=== PATIENT | male | born 1995 ===

== ENCOUNTER 2016-09-07 22:16 | Emergency (ER) | payer BC, OTHER ==
[2016-09-07 22:22] VITALS: BP 120/67; PULSE 92; RESP 18; TEMP 98; O2SAT 97
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
== END 2016-09-07 23:26 | disposition home or self-care (01) ==
LOC: H.ER 22:16
DX: S01.512A Laceration without foreign body of oral cavity, initial encounter (principal); Y04.0XXA Assault by unarmed brawl or fight, initial encounter; Y92.89 Other specified places as the place of occurrence of the external cause

== ENCOUNTER 2016-09-08 19:07 | Emergency (ER) | payer BC, OTHER ==
[2016-09-08 19:15] VITALS: O2SAT 100
[2016-09-08] MEDS ORDERED: Clindamycin 600 MG in Sodium Chloride 0.9% 100 ML IVPB STA (19:27)
--- NOTE | 2016-09-08 19:30 | ED PDOC ---
HPI: General Adult Time Seen by Provider: 09/08/16 19:20 Chief Complaint (Nursing): Abnormal Skin Integrity Chief Complaint (Provider): Right sided mouth swelling History Per: Patient History/Exam Limitations: no limitations Onset/Duration Of Symptoms: Days (1) Have you had recent travel within the past 21 days to any of the following countries: [place], [place], [place] or [place]?: No Current Symptoms Are (Timing): Still Present Severity: Moderate Recently: Seen In ED Additional History Per: Patient Additional Complaint(s): The pt is a 21yo male, presents to the ED for evaluation of pain and swelling to the right side of his mouth since last night. Pt was seen in this facility by provider at 22:20 for evaluation of laceration sustained on the right intra- oral space and had 10 stitches as well as antibiotics. Pt was discharged with Rx Penicillin and Motrin and was instructed for proper wound care. Pt reports today with persistent pain, increased swelling and tactile fever. He states he filled out his prescriptions today and has taken only one dose of the antibiotics. He denies any new injuries or trauma. At present, he offers no additional medical complaints. PMD: None provided Past Medical History Reviewed: Historical Data, Nursing Documentation, Vital Signs Vital Signs: Last Vital Signs Temp 98.2 F 09/08/16 19:12 Pulse 62 09/08/16 19:12 Resp 18 09/08/16 19:12 BP 139/81 09/08/16 19:12 Pulse Ox 100 09/08/16 21:00 - Surgical History Surgical History: No Surg Hx - Family History Family History: States: No Known Family Hx - Living Arrangements Living Arrangements: With Family - Home Medications Home Medications: Ambulatory Orders Medication Instructions Recorded Ibuprofen [Motrin] 600 mg PO Q8 PRN #21 tab 09/07/16 Penicillin VK [Pen-Vee K] 1 tab PO QID #40 tab 09/07/16 Clindamycin [Cleocin] 1 tab PO Q6 #40 cap 09/08/16 - Allergies Allergies/Adverse Reactions: Allergies Allergy/AdvReac Type Severity Reaction Status Date / Time No Known Allergies Allergy Verified 09/07/16 22:18 Review of Systems ROS Statement: Except As Marked, All Systems Reviewed And Found Negative Constitutional: Negative for: Fever ENT: Positive for: Mouth Pain (swelling in right mouth), Other (no new trauma to mouth) Physical Exam - Reviewed Nursing Documentation Reviewed: Yes Vital Signs Reviewed: Yes - Physical Exam Appears: Positive for: Well, Non-toxic, No Acute Distress Head Exam: Positive for: ATRAUMATIC, NORMAL INSPECTION, NORMOCEPHALIC Skin: Positive for: Normal Color, Warm, DRY Eye Exam: Positive for: Normal appearance ENT: Positive for: Other (moderate swelling to right side of mouth, purulent discharge noted at suture site) Neck: Positive for: Normal Cardiovascular/Chest: Positive for: Regular Rate, Rhythm Respiratory: Positive for: Normal Breath Sounds. Negative for: Respiratory Distress Neurologic/Psych: Positive for: Alert, Oriented - Laboratory Results Result Diagrams: 09/08/16 19:58 09/08/16 19:58 - ECG O2 Sat by Pulse Oximetry: 100 (RA) Pulse Ox Interpretation: Normal - Progress ED Course And Treament: Clindamycin 600mg iv x 1 dose Medical Decision Making Medical Decision Making: Time: 1929 Impression: Right sided mouth swelling with purulent discharge Plan: -- CMP -- Lactic acid -- CBC -- Blood culture -- Morphine 4 mg IVP -- Clindamycin IVPB --Reassess Time: 1939 Pt evaluated by ED Attending Dr. Au as well. Course: Stitches to be removed in order for drainage to occur. Time: 2003 Laceration 1: 3 sutures removed Laceration 2: 4 sutures removed Scribe Attestation: All records were documented by Soraya Kimble, acting as a Scribe for REUBEN Hdz. Provider Scribe Attestation: All medical record entries made by the Scribe were at my direction and personally dictated by me. I have reviewed the chart and agree that the record accurately reflects my personal performance of the history, physical exam, medical decision making, and the department course for this patient. I have also personally directed, reviewed, and agree with the discharge instructions and disposition. Disposition - Clinical Impression Clinical Impression: Intraoral laceration - Patient ED Disposition Is Patient to be Admitted: No - Disposition Disposition: Routine/Home Disposition Time: 20:57 Condition: FAIR Prescriptions: Clindamycin [Cleocin] 1 tab PO Q6 #40 cap Instructions: Wound Infection (ED)
[2016-09-08 20:09] LABS: BASO # 0.1 K/uL (0.0-0.2); BASO % 0.5 % (0.0-2.0); EOS # 0.1 K/uL (0.0-0.7); EOS % 0.7 % (0.0-4.0); HEMATOCRIT 41.3 % (35.0-51.0); LYMPH # 1.7 K/uL (1.0-4.3); LYMPH % 14.7 % (20.0-40.0); MEAN CELL VOLUME 88.3 fl (80.0-94.0); MEAN CORPUSCULAR HEMOGLOBIN 30.3 pg (27.0-31.0); MEAN CORPUSCULAR HGB CONC 34.3 g/dL (33.0-37.0); MEAN PLATELET VOLUME 10.5 fl (7.2-11.7); NEUT # 8.7 K/uL (1.8-7.0); NEUT % 75.1 % (50.0-75.0); NRBC % 0.1 % (0.0-0.0); RED CELL DISTRIBUTION WIDTH 12.8 % (11.5-14.5); WHITE BLOOD COUNT 11.6 K/uL (4.8-10.8)
[2016-09-08 20:17] LABS: ALB/GLOB RATIO 1.7 (1.0-2.1); ALKALINE PHOSPHATASE 74 U/L (38-126); ALT/SGPT 24 U/L (21-72); AST/SGOT 26 U/L (17-59); BILIRUBIN,TOTAL 2.4 mg/dl (0.2-1.3); BLOOD UREA NITROGEN 11 mg/dl (9-20); CALCIUM 9.4 mg/dL (8.4-10.2); CARBON DIOXIDE 24 mmol/L (22-30); CHLORIDE 103 mmol/L (98-107); GFR AFRICAN-AMERICAN > 60; GLUCOSE,RANDOM 85 mg/dL (75-110); POTASSIUM 3.6 MMOL/L (3.6-5.0); SODIUM 145 mmol/l (132-148); TOTAL PROTEIN 7.7 G/DL (6.3-8.2)
[2016-09-08 21:47] VITALS: BP 121/80; PULSE 60; RESP 16; TEMP 97.7
== END 2016-09-08 21:46 | disposition home or self-care (01) ==
LOC: H.ER 19:07
DX: R22.0 Localized swelling, mass and lump, head (principal); Z48.02 Encounter for removal of sutures; T81.4XXA Infection following a procedure, initial encounter
CPT/HCPCS: 80053; 83605; 85025; 87040; 96365; 96375; 99284; J2270